=== PATIENT | male | born 1970 | race Caucasian/White ===

== ENCOUNTER 2024-09-04 12:39 | Outpatient (CLI) | payer OTHER, SELFPAY ==
--- NOTE | 2024-09-04 13:00 | CRLHL7_ITS ---
For Patients: As a result of the Century Cures Act, medical imaging exams and procedure reports are released immediately into your electronic medical record. You may view this report before your referring provider. If you have questions, please contact your health care provider. EXAM: MRI OF THE LEFT KNEE, WITHOUT CONTRAST CLINICAL INDICATION: Injury. Pain. PRIOR SURGERY: None reported. COMPARISON PLAIN FILMS: 21 August 2024 COMPARISON CROSS-SECTIONAL IMAGING STUDIES: None available at time of interpretation. TECHNICAL: Axial, sagittal and coronal T1, PD, PD FS and T2 FS images. 1.5 [employer] MR scanner. Knee coil. FINDINGS: OSSEOUS STRUCTURES: No fracture, marrow edema or marrow replacement process. JOINT SPACE AND CAPSULE: Effusion: No significant joint effusion or synovitis. Joint Bodies: None seen. CRUCIATE LIGAMENTS: Anterior Cruciate Ligament: Somewhat small with normal orientation.. Posterior Cruciate Ligament: Intact ligament looks somewhat attenuated and redundant superiorly with bifid appearance in the coronal plane. EXTENSOR MECHANISM: Distal Quadriceps Tendon: Normal. Patellar Tendon: Normal. Medial Patellar Retinaculum and Medial Patellofemoral Ligament: Normal. Lateral Patellar Retinaculum: Normal. Mild lateral tilt. No patella linden. Normal trochlear depth. Normal lateral trochlear inclination. Focal edema superolateral margin of Hoffa`s fat. MEDIAL COLLATERAL LIGAMENT AND POSTEROMEDIAL CORNER COMPLEX: Medial Collateral Ligament: Normal. Medial Head of the Gastrocnemius and Semimembranosus Tendons: Normal. LATERAL COLLATERAL LIGAMENT COMPLEX AND POSTEROLATERAL CORNER COMPLEX: Fibular Collateral Ligament: Normal. Distal Biceps Femoris Tendon Complex: Normal. Iliotibial Band: Normal. Popliteus Tendon: Normal. Posterolateral Corner Capsule: Normal. MEDIAL COMPARTMENT: Medial Meniscus: Normal size and morphology without tear. Articular Cartilage: Articular surfaces appear smooth without focal articular cartilage defect or subchondral marrow changes. LATERAL COMPARTMENT: Lateral Meniscus: Normal size and morphology without tear. Articular Cartilage: Articular surfaces appear smooth without focal articular cartilage defect or subchondral marrow changes. PATELLOFEMORAL COMPARTMENT: Articular Cartilage: Increased T2 signal in the median ridge. Small subchondral cysts surrounded by edema and sclerosis mid median ridge may be from an occult fissure. PERIARTICULAR SOFT TISSUES: Popliteal Cyst: No significant popliteal cyst. Periarticular Cysts or Ganglia: None. Bursae: No prepatellar, superficial infrapatellar, deep infrapatellar, pes anserinus or semimembranosus/MCL bursitis. Musculature: No muscle atrophy or muscle edema. Subcutaneous and Soft Tissues: No subcutaneous or soft tissue mass, edema or fluid collection. Neurovascular Structures: Normal. IMPRESSION: 1. Lateral tilt and minor subluxation of the patella with focal edema superolateral margin of Hoffa`s fat. Correlate for lateral tracking and Hoffa`s impingement. 2. 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 3. No acute internal derangement of menisci or ligaments. Moderately attenuated proximal PCL may be remote injury related. Remote partial tear ACL also not excluded. Dictated by Nacho Lara MD @ 09/05/2024 10:51:04 AM (Electronically Signed)
== END 2024-09-04 12:40 | disposition home or self-care (01) ==
PROVIDERS: Visit Provider Family Medicine
DX: M25.562 Pain in left knee (principal); M22.42 Chondromalacia patellae, left knee; S89.92XA Unspecified injury of left lower leg, initial encounter
CPT/HCPCS: 73721